=== PATIENT | female | born 1985 | race African-American/Black ===

== ENCOUNTER 2016-12-15 06:29 | Emergency (ER) | payer SELFPAY ==
[~2016-12-15] VITALS: Ht 165.1 cm; Wt 77.0 kg
[~2016-12-15 06:29] MED LIST: NONE REPORTED
[2016-12-15] MEDS ORDERED: KETOROLAC 60MG/2ML VIAL IM ONE (08:45)
[2016-12-15 09:25] VITALS: BP 111/60
== END 2016-12-15 09:28 | disposition home or self-care (01) ==
LOC: ER 07:28
DX: S90.862A Insect bite (nonvenomous), left foot, initial encounter (principal); W57.XXXA Bitten or stung by nonvenomous insect and other nonvenomous arthropods, initial encounter; R50.9 Fever, unspecified
CPT/HCPCS: 81025; 96372; 99283; J1885; Z7610